=== PATIENT | female | born 1965 | race Caucasian/White ===

== ENCOUNTER 2017-07-30 15:52 | Emergency (ER) | payer BC ==
[2017-07-30 16:17] VITALS: BP 115/79
--- NOTE | 2017-07-30 16:17 | UC ---
Throat Pain/Nasal Fredy HPI - HPI Summary HPI Summary: 52 year old female presents with cough, nasal congestion, cough and fever blister. - History of Current Complaint Stated Complaint: SINUSES Time Seen by Provider: 07/30/17 16:16 Hx Obtained From: Patient Hx Last Menstrual Period: LAST WEEK Onset/Duration: Sudden Onset Severity: Moderate Cough: Nonproductive - Allergies/Home Medications Allergies/Adverse Reactions: Allergies Allergy/AdvReac Type Severity Reaction Status Date / Time Sulfa Drugs Allergy Intermediate Swelling Verified 07/30/17 16:07 Home Medications: Home Medications Dextromethorphan-Phenylephrine [Day Time Multi-Symptom Co 10-5-325 mg] 1 cap PO PRN 07/30/17 [History] PMH/Surg Hx/FS Hx/Imm Hx Previously Healthy: Yes - Surgical History Surgical History: None - Family History Known Family History: Positive: None - Social History Alcohol Use: None Substance Use Type: None Smoking Status (MU): Never Smoked Tobacco Review of Systems Constitutional: Negative Skin: Other - upper lip fever blister Eyes: Negative ENT: Sore Throat, Ear Ache, Nasal Discharge, Sinus Congestion, Sinus Pain/ Tenderness Respiratory: Negative Cardiovascular: Negative Gastrointestinal: Negative Genitourinary: Negative Motor: Negative Neurovascular: Negative Musculoskeletal: Negative Neurological: Negative Psychological: Negative All Other Systems Reviewed And Are Negative: Yes Physical Exam Triage Information Reviewed: Yes Vital Signs Reviewed: Yes Eye Exam: Normal ENT: Positive: Pharyngeal erythema, Nasal congestion, Nasal drainage, Sinus tenderness Dental Exam: Normal Neck exam: Normal Neck: Positive: 1 Respiratory Exam: Normal Cardiovascular Exam: Normal Abdominal Exam: Normal Musculoskeletal Exam: Normal Neurological Exam: Normal Psychological Exam: Normal Skin: Positive: Other - upper lip fever blister Throat Pain/Nasal Course/Dx - Differential Dx/Diagnosis Provider Diagnoses: fever blister. cough. sinusitis. allergic rhinitis Discharge - Discharge Plan Condition: Stable Disposition: HOME Prescriptions: Acyclovir* [Zovirax 400 MG TAB*] 400 mg PO TID #15 tab Amoxicillin/Clavulanate TAB* [Augmentin TAB 875*] 875 mg PO BID #20 tab Guaifenesin-Codeine [Cheratussin AC] 1 teasp PO BEDTIME PRN #120 ml MDD 5 ml PRN Reason: Cough LoraTADine TAB(NF) [Claritin 10 MG TAB(NF)] 10 mg PO DAILY #30 tab Magic M W2 Severiano/Maal/Nyst/Lido* 5 ml SWISH SPIT QID PRN #120 ml PRN Reason: Pain Patient Education Materials: Allergic Rhinitis (ED), Blister (ED) Referrals: Laura Mcgrath MD [Medical Doctor] -
== END 2017-07-30 16:30 | disposition home or self-care (01) ==
LOC: UCCORT 15:52
DX: B00.1 Herpesviral vesicular dermatitis (principal); R05 Cough; J32.9 Chronic sinusitis, unspecified; J30.9 Allergic rhinitis, unspecified
CPT/HCPCS: 99212; G0463

== ENCOUNTER 2018-02-23 09:08 | Emergency (ER) | payer BC ==
[2018-02-23 09:38] VITALS: BP 119/67
--- NOTE | 2018-02-23 09:38 | UC ---
Eye Complaint HPI - HPI Summary HPI Summary: Patient is a 52 year old female, without any significant past medical history who present today to urgent care with right lower eyelid swelling and redness for past 1 week. seen by ophthalmology twice, initially treated with steroids and on next visit was given polytrim eye drops. Denies any conjunctival redness, irritation, increased lacrimation. Denies any grittiness No sick contacts . No skin rash. Denies any fever, chills, cough chest pain or shortness of breath . Denies any abdominal pain , nausea or vomiting , diarrhea or constipation. Her symptoms are not going away and rather worsening despite on antibiotic. - History of Current Complaint Chief Complaint: UCEye Stated Complaint: RT EYE COMP Time Seen by Provider: 02/23/18 09:25 Hx Obtained From: Patient Hx Last Menstrual Period: LAST WEEK ?: No - LMP 2 years ago Onset/Duration: Sudden Onset Timing: Constant Severity Initially: Mild Severity Currently: Moderate Pain Intensity: 8 - last night Pain Scale Used: 0-10 Numeric Location of Injury: Eye Lid (lower) - right Character: Sharp Aggravating Factor(s): Nothing Alleviating Factor(s): Nothing Associated Signs And Symptoms: Positive: Swelling. Negative: Photophobia, Drainage (Clear), Drainage (Purulent), Vision Impairment Bilateral, Fever - Allergies/Home Medications Allergies/Adverse Reactions: Allergies Allergy/AdvReac Type Severity Reaction Status Date / Time Sulfa (Sulfonamide Allergy Swelling Verified 02/23/18 09:27 Antibiotics) Home Medications: Home Medications Loteprednol 0.5% OPH.SUSP(NF) [Lotemax 0.5% OPH.SUSP (NF)] 1 drop BID 02/23/18 [ History Confirmed 02/23/18] Neomycin/Polymy/Dex OPHTH.OIN* [Maxitrol 0.1% Opth*] 1 applic TID 02/23/18 [ History Confirmed 02/23/18] PMH/Surg Hx/FS Hx/Imm Hx Previously Healthy: Yes Other Endocrine History: negative Other Cardiovascular History: negative Other Respiratory History: negative Other GI/ History: negative Other Neurological History: negative Other Psychological History: negative Other Cancer History: negative - Surgical History Surgical History: None - Family History Known Family History: Positive: None - Social History Alcohol Use: None Substance Use Type: None Smoking Status (MU): Never Smoked Tobacco - Immunization History Most Recent Influenza Vaccination: JUN 2017 Review of Systems Constitutional: Negative Skin: Negative Eyes: Eye Redness, Other - right lower eye lid swelling and tenderness. ENT: Negative Respiratory: Negative Cardiovascular: Negative Gastrointestinal: Negative Genitourinary: Negative Motor: Negative Neurovascular: Negative Musculoskeletal: Negative Neurological: Negative Is Patient Immunocompromised?: No All Other Systems Reviewed And Are Negative: Yes Physical Exam Triage Information Reviewed: Yes Appearance: Well-Appearing, No Pain Distress Vital Signs Reviewed: Yes Eye Exam: Normal Eyes: Positive: Conjunctiva Clear, Other: - No bulbar erythema. There is swlling and redness of the right lower eyelid around the nasolacrimal duct opening medially . There is mild swelling in the same area of the right upper eye lid. No discharge noted. ENT Exam: Normal ENT: Positive: Pharynx normal, Nasal congestion, TMs normal. Negative: Trismus , Hoarse voice Neck exam: Normal Neck: Positive: Supple, Nontender, No Lymphadenopathy Respiratory Exam: Normal Respiratory: Positive: Chest non-tender, Lungs clear, Normal breath sounds, No respiratory distress. Negative: Crackles, Rhonchi, Stridor, Wheezing Cardiovascular Exam: Normal Cardiovascular: Positive: RRR, No Murmur, Pulses Normal Abdominal Exam: Normal Abdomen Description: Positive: Nontender, Soft. Negative: Distended, Guarding Bowel Sounds: Positive: Present Musculoskeletal Exam: Normal Musculoskeletal: Positive: Strength Intact Neurological Exam: Normal Psychological Exam: Normal Psychological: Positive: Age Appropriate Behavior Skin Exam: Normal Skin: Negative: rashes Eye Complaint Course/Dx - Course Course Of Treatment: We discussed the findings and further plan. I will prescribe the oral antibiotic along with the eye drops to the pharmacy . Patient expressed understanding . - Differential Dx/Diagnosis Provider Diagnoses: Stye Discharge - Sign-Out/Discharge Documenting (check all that apply): Discharge/Admit/Transfer - Discharge Plan Condition: Stable Disposition: HOME Prescriptions: Cephalexin CAP* [Keflex CAP*] 500 mg PO TID 10 Days #30 cap Moxifloxacin 0.5% OPHTH(NF) [Vigamox 0.5% OPHTH(NF)] 0.5 % OP TID 7 Days #1 augustine Patient Education Materials: Rama (ED) Referrals: Tanvi Neal MD [Primary Care Provider] - Zablocki,Eber, MD [Medical Doctor] - 2 Days Additional Instructions: Start using the eye drops. It has been prescribed to the pharmacy . Oral antibiotic is also prescribed, You can fill it if no better in 2 days. Follow up with ophthalmology in 2 to 3 days. Return to Urgent care / ER if symptoms get worse. - Billing Disposition and Condition Condition: STABLE Disposition: Home
== END 2018-02-23 10:13 | disposition home or self-care (01) ==
LOC: UCCORT 09:08
DX: H00.022 Hordeolum internum right lower eyelid (principal); Z88.2 Allergy status to sulfonamides
CPT/HCPCS: 99212; G0463

== ENCOUNTER 2018-09-03 15:55 | Emergency (ER) | payer BC ==
[2018-09-03 16:44] VITALS: BP 122/66
--- NOTE | 2018-09-03 18:00 | UC ---
Respiratory Complaint HPI - HPI Summary HPI Summary: Patient is a 53-year-old female with a 10 day to 2 week history of sinus pressure and pain postnasal drip and cough. She denies laryngitis. She denies any fever or chills. She denies any nausea vomiting or diarrhea. She denies any chest pain or shortness of breath. - History of Current Complaint Chief Complaint: UCGeneralIllness Stated Complaint: SORE THROAT,SINUS COMPLAINT Hx Obtained From: Patient Hx Last Menstrual Period: LAST WEEK Onset/Duration: Gradual Onset, Lasting Weeks Timing: Constant Severity Initially: Mild Severity Currently: Moderate Pain Intensity: 5 Pain Scale Used: 0-10 Numeric Character: Cough: Nonproductive Associated Signs And Symptoms: Positive: Nasal Congestion, Hoarseness, Sinus Discomfort - Allergies/Home Medications Allergies/Adverse Reactions: Allergies Allergy/AdvReac Type Severity Reaction Status Date / Time Sulfa (Sulfonamide Allergy Swelling Verified 09/03/18 16:44 Antibiotics) Home Medications: Home Medications Dm/PE/Acetaminophen/Chlorphenr [[place] Plus Cld-Cough Cp] 1 each PO DAILY 09/03/18 [History Confirmed 09/03/18] Ibuprofen TAB* [Motrin TAB* 400 MG] 400 mg PO Q6H PRN 09/03/18 [History Confirmed 09/03/18] Levothyroxine TAB* [Synthroid TAB*] 200 mcg PO DAILY 09/03/18 [History Confirmed 09/03/18] PMH/Surg Hx/FS Hx/Imm Hx Previously Healthy: Yes Endocrine History: Thyroid Disease - Surgical History Surgical History: None - Family History Known Family History: Positive: Hypertension - Social History Alcohol Use: None Substance Use Type: None Smoking Status (MU): Never Smoked Tobacco - Immunization History Most Recent Influenza Vaccination: JUN 2017 Review of Systems All Other Systems Reviewed And Are Negative: Yes Constitutional: Positive: Fatigue Skin: Positive: Negative Eyes: Positive: Negative ENT: Positive: Nasal Discharge, Sinus Congestion, Sinus Pain/Tenderness Respiratory: Positive: Cough Cardiovascular: Positive: Negative Gastrointestinal: Positive: Negative Genitourinary: Positive: Negative Motor: Positive: Negative Neurovascular: Positive: Negative Musculoskeletal: Positive: Negative Neurological: Positive: Negative Psychological: Positive: Negative Physical Exam Triage Information Reviewed: Yes Appearance: Well-Appearing, No Pain Distress, Well-Nourished Vital Signs: Initial Vital Signs Temp 98.2 F 09/03/18 16:38 Pulse 89 09/03/18 16:38 Resp 16 09/03/18 16:38 BP 122/66 09/03/18 16:38 Pulse Ox 99 09/03/18 16:38 Vital Signs Reviewed: Yes Eyes: Positive: Conjunctiva Clear ENT: Positive: Hearing grossly normal, Pharynx normal, Nasal congestion, Nasal drainage, Hoarse voice, Sinus tenderness, Uvula midline. Negative: Tonsillar swelling, Tonsillar exudate, Trismus, Muffled voice Dental Exam: Normal Neck: Positive: Supple, Nontender, No Lymphadenopathy Respiratory: Positive: Lungs clear, Normal breath sounds, No respiratory distress, No accessory muscle use Cardiovascular: Positive: RRR, No Murmur Musculoskeletal: Positive: ROM Intact, No Edema Neurological: Positive: Alert Psychological Exam: Normal Skin Exam: Normal UC Diagnostic Evaluation - Laboratory O2 Sat by Pulse Oximetry: 99 - normal/not hypoxic Respiratory Course/Dx - Differential Dx/Diagnosis Provider Diagnosis: Acute sinus infection, Laryngitis Discharge - Sign-Out/Discharge Documenting (check all that apply): Patient Departure All imaging exams completed and their final reports reviewed: No Studies - Discharge Plan Condition: Stable Disposition: AGAINST MEDICAL ADVICE Prescriptions: Amoxicillin/Clavulanate TAB* [Augmentin TAB 875*] 875 mg PO BID #20 tab predniSONE [Deltasone 20 MG TAB] 40 mg PO DAILY #6 tab Patient Education Materials: Sinusitis (ED) Referrals: Hortencia Dickens NP [Primary Care Provider] - 1 Week (if not better) - Billing Disposition and Condition Condition: STABLE Disposition: Against Medical Advice
== END 2018-09-03 18:05 | disposition left against medical advice (07) ==
LOC: UCCORT 15:55
DX: J01.90 Acute sinusitis, unspecified (principal); J04.0 Acute laryngitis; Z88.2 Allergy status to sulfonamides
CPT/HCPCS: 99212; G0463